=== PATIENT | male | born 1960 | race Caucasian/White ===

== ENCOUNTER 2017-12-06 18:10 | Emergency (ER) | payer MEDICAID ==
[~2017-12-06] VITALS: Ht 172.7 cm; Wt 93.0 kg
[2017-12-06 18:11] VITALS: BP_SYST 182
--- NOTE | 2017-12-06 18:11 | NUR ---
Patient to ER bed 6 to gown for evaluation. Side rails up. Report given to COLTEN Campa.
--- NOTE | 2017-12-06 18:14 | NUR ---
Pt AAOx4 ambulated into ED c/o 3 episodes of bright red blood in stool. Hx of hemorrhoids. Denies N/V/D/pain. Pt skin pink dry and warm, breathing even and unlabored. No other injuries/complaints per pt/noted. Will continue to monitor.
--- NOTE | 2017-12-06 18:20 | NUR ---
ER Dr. Morrissey at bedside examining patient.
[2017-12-06] MEDS ORDERED: LORazepam 1 MG TABLET PO ONE (19:00)
[2017-12-06] MEDS ORDERED: NACL 0.9% 1,000 ML IV ONE (19:00)
--- NOTE | 2017-12-06 19:05 | NUR ---
Pt refused Ativan; requested to hold medication "in case he needs it later"
[2017-12-06 19:18] LABS: BASOPHILS % (AUTO) 0.5 % (0.0-2.0); EOSINOPHILS # (AUTO) 0.1 K/uL (0.0-0.4); EOSINOPHILS % (AUTO) 0.9 % (0.0-4.0); HEMATOCRIT 43.9 % (36-54); HEMOGLOBIN 15.5 g/dL (14.0-18.0); LYMPHOCYTES # (AUTO) 1.1 K/uL (1.0-5.5); LYMPHOCYTES % (AUTO) 15.5 % (20.5-51.5); MEAN CORPUSCULAR HEMOGLOBIN 38 pg (27-31); MEAN CORPUSCULAR HGB CONC 35 % (32-36); MEAN CORPUSCULAR VOLUME 107 fL (79.0-98.0); MONOCYTES # (AUTO) 0.6 K/uL (0.0-1.0); MONOCYTES % (AUTO) 8.9 % (1.7-9.3); NEUTROPHILS # (AUTO) 5.4 K/uL (1.8-7.7); NEUTROPHILS % (AUTO) 74.2 % (40.0-70.0); RED BLOOD CELL COUNT(AUTO) 4.13 MIL/uL (4.2-6.2); RED CELL DISTRIBUTION WIDTH 13.2 % (9.0-15.0); WHITE BLOOD COUNT (AUTO) 7.3 K/uL (4.8-10.8)
[2017-12-06 19:25] LABS: CALCIUM 8.9 mg/dL (8.4-11.0); CREATININE 0.59 mg/dL (0.55-1.30); POTASSIUM 3.4 mmol/L (3.5-5.1)
[2017-12-06 19:28] LABS: INR 1.2 (0.80-1.20); PROTHROMBIN TIME 12.3 SECS (9.5-12.5)
[2017-12-06 19:30] LABS: TOTAL BILIRUBIN 1.1 mg/dL (0.0-1.0)
[2017-12-06 20:02] LABS: PLATELET COUNT (AUTO) 83 K/uL (130-430)
--- NOTE | 2017-12-06 20:06 | NUR ---
Pt resting comfortably in bed with no signs of distress; at bedside
--- NOTE | 2017-12-06 20:50 | NUR ---
Pt ambulated to bathroom with steady gait to provide urine sample
[2017-12-06 21:37] VITALS: BP_SYST 160
== END 2017-12-06 21:26 | disposition home or self-care (01) ==
LOC: SED 18:10
DX: K92.2 Gastrointestinal hemorrhage, unspecified (principal); R03.0 Elevated blood-pressure reading, without diagnosis of hypertension; R07.89 Other chest pain; Z90.89 Acquired absence of other organs
CPT/HCPCS: 36415; 71045; 80053; 82272; 85025; 85610; 85730; 86886; 86900; 86901; 93005; 96360; 99285; J7030

== ENCOUNTER 2018-07-04 02:57 | Emergency (ER) | payer MEDICAID ==
[~2018-07-04] VITALS: Ht 175.3 cm; Wt 97.5 kg
[2018-07-04 03:05] VITALS: BP_SYST 149
[2018-07-04] MEDS ORDERED: AMOXICILLIN/CLAVULANATE POTASSIUM 875 MG TABLET PO ONE (03:30)
[2018-07-04 04:18] LABS: BASOPHILS % (AUTO) 0.9 % (0.0-2.0); EOSINOPHILS # (AUTO) 0.1 K/uL (0.0-0.4); EOSINOPHILS % (AUTO) 2.5 % (0.0-4.0); HEMATOCRIT 42.5 % (36-54); HEMOGLOBIN 13.9 g/dL (14.0-18.0); LYMPHOCYTES # (AUTO) 1.2 K/uL (1.0-5.5); MEAN CORPUSCULAR HEMOGLOBIN 37 pg (27-31); MEAN CORPUSCULAR HGB CONC 33 % (32-36); MEAN CORPUSCULAR VOLUME 114 fL (79.0-98.0); MONOCYTES # (AUTO) 0.6 K/uL (0.0-1.0); MONOCYTES % (AUTO) 10.9 % (1.7-9.3); NEUTROPHILS # (AUTO) 3.3 K/uL (1.8-7.7); PLATELET COUNT (AUTO) 50 K/uL (130-430); RED BLOOD CELL COUNT(AUTO) 3.73 MIL/uL (4.2-6.2); RED CELL DISTRIBUTION WIDTH 13.6 % (9.0-15.0); WHITE BLOOD COUNT (AUTO) 5.2 K/uL (4.8-10.8)
[2018-07-04 04:20] LABS: CALCIUM 8.4 mg/dL (8.4-11.0); CREATININE 0.68 mg/dL (0.55-1.30); POTASSIUM 3.9 mmol/L (3.5-5.1)
[2018-07-04 04:26] LABS: ALBUMIN 3.7 g/dL (3.4-4.8); TOTAL BILIRUBIN 2.7 mg/dL (0.0-1.0)
[2018-07-04 04:28] LABS: INR 1.3 (0.80-1.20)
[2018-07-04 04:36] LABS: NEUTROPHILS % (AUTO) 62.7 % (40.0-70.0)
[2018-07-04 04:50] VITALS: BP_SYST 149
== END 2018-07-04 04:50 | disposition home or self-care (01) ==
LOC: SED 02:57
DX: K05.10 Chronic gingivitis, plaque induced (principal); D69.6 Thrombocytopenia, unspecified; R04.0 Epistaxis; F10.10 Alcohol abuse, uncomplicated; R03.0 Elevated blood-pressure reading, without diagnosis of hypertension
CPT/HCPCS: 36415; 80053; 85025; 85610-TC; 85730-TC; 99283

== ENCOUNTER 2019-01-25 18:35 | Emergency (ER) | payer MEDICAID ==
[~2019-01-25] VITALS: Ht 175.3 cm; Wt 83.9 kg
[2019-01-25 18:50] VITALS: BP_SYST 166
[2019-01-25 19:34] LABS: BASOPHILS % (AUTO) 0.5 % (0.0-2.0); EOSINOPHILS # (AUTO) 0.2 K/uL (0.0-0.4); EOSINOPHILS % (AUTO) 3.7 % (0.0-4.0); HEMATOCRIT 39.2 % (36-54); HEMOGLOBIN 13.5 g/dL (14.0-18.0); LYMPHOCYTES # (AUTO) 1.5 K/uL (1.0-5.5); LYMPHOCYTES % (AUTO) 25.6 % (20.5-51.5); MEAN CORPUSCULAR HEMOGLOBIN 39 pg (27-31); MEAN CORPUSCULAR HGB CONC 35 % (32-36); MEAN CORPUSCULAR VOLUME 114 fL (79.0-98.0); MONOCYTES # (AUTO) 0.5 K/uL (0.0-1.0); MONOCYTES % (AUTO) 8.9 % (1.7-9.3); NEUTROPHILS # (AUTO) 3.6 K/uL (1.8-7.7); NEUTROPHILS % (AUTO) 61.3 % (40.0-70.0); RED BLOOD CELL COUNT(AUTO) 3.44 MIL/uL (4.2-6.2); RED CELL DISTRIBUTION WIDTH 14.8 % (9.0-15.0); WHITE BLOOD COUNT (AUTO) 5.8 K/uL (4.8-10.8)
[2019-01-25 19:40] LABS: CREATININE 0.45 mg/dL (0.55-1.30); POTASSIUM 3.6 mmol/L (3.5-5.1)
[2019-01-25 19:42] LABS: INR 1.3 (0.80-1.20)
[2019-01-25 19:45] LABS: ALBUMIN 3.8 g/dL (3.4-4.8); TOTAL BILIRUBIN 3.2 mg/dL (0.0-1.0)
[2019-01-25 19:56] LABS: PLATELET COUNT (AUTO) 83 K/uL (130-430)
[2019-01-25] MEDS ORDERED: PENICILLIN V POTASSIUM 250 MG TABLET PO ONE (20:30)
[2019-01-25] MEDS ORDERED: PHYTONADIONE Non-Formulary 5 MG TABLET PO ONE (20:30)
[2019-01-25 20:35] VITALS: BP_SYST 162
== END 2019-01-25 20:35 | disposition home or self-care (01) ==
LOC: SED 18:35
DX: K02.9 Dental caries, unspecified (principal); R03.0 Elevated blood-pressure reading, without diagnosis of hypertension
CPT/HCPCS: 36415; 80053; 85025; 85610-TC; 85730-TC; 99283